=== PATIENT | female | born 2000 | race Caucasian/White ===

== ENCOUNTER 2020-08-06 23:30 | Inpatient (IN) ==
[2020-08-06 23:22] LABS: Basophils # 0.1 K/mcL (0.0-0.2); Basophils % 0.6 %; Eosinophils # 0.2 K/mcL (0.0-0.6); Eosinophils % 1.6 %; Hematocrit 41.5 % (35.3-44.9); Hemoglobin 14.1 g/dL (11.5-15.4); Immature Granulocytes % 1.1 % (0-4); Lymphocytes # 2.7 K/mcL (0.6-4.6); Lymphocytes % 18.7 %; Mean Corpuscular Hemoglobin 32.1 pg (28.0-33.3); Mean Corpuscular Volume 94.5 fL (83.0-100.0); Mean Platelet Volume 9.7 fL (9.4-12.4); Monocytes # 1.1 K/mcL (0.0-1.3); Monocytes % 7.4 %; Neutrophils # 10.1 K/mcL (1.6-8.9); Platelet Count 273 K/mcL (140-400); Red Blood Count 4.39 M/mcL (3.82-4.97); Segmented Neutrophils % 70.6 %; White Blood Count 14.4 K/mcL (4.3-11.1)
[~2020-08-06 23:30] MED LIST: *HR* FentaNYL (PF) 100 MCG/2 ML VIAL IVP PRN; Famotidine 20 MG/2 ML VIAL IVP PRN; Lidocaine 1% 20 ML MDV INFILT PRN; Metoclopramide 10 MG/2 ML VIAL IVP PRN; Naloxone 0.4 MG/ML INJ IVP PRN; Ondansetron 4 MG/2 ML VIAL IVP PRN; Oxytocin 20 units/ LR 1000 mL 20 UNIT/1,000 ML BAG IVC ONE; Ringers Solution, Lactated 1,000 ML IVC SCH
[2020-08-06 23:32] LABS: Amphetamine Screen,Urine Negative ng/mL (Cutoff=1000); Barbiturate Screen,Urine Negative ng/mL (Cutoff=200); Benzodiazepines Screen,Urine Negative ng/mL (Cutoff=200); Cannabinoid Screen,Urine Negative ng/mL (Cutoff = 50); Cocaine Screen,Urine Negative ng/mL (Cutoff= 300); Opiate Screen,Urine Negative ng/mL (Cutoff=300); Phencyclidine Screen,Urine Negative ng/mL (Cutoff=25)
[2020-08-06] MEDS ORDERED: *HR* FentaNYL (PF) 100 MCG/2 ML VIAL ONE (23:55)
[2020-08-06] MEDS ORDERED: Bupivacaine-MPF 0.25% 10 ML VIAL ONE (23:55)
[2020-08-06] MEDS ORDERED: Epidural Premix (fent/bupiv) 110 ML EP ONE (23:58)
[2020-08-07] MEDS ORDERED: EPHEDrine 50 MG/ML VIAL IVP PRN (00:23)
[2020-08-07] MEDS ORDERED: Epidural Premix (fent/bupiv) 110 ML EP SCH (00:30)
[2020-08-07] MEDS ORDERED: Oxytocin 20 units/ LR 1000 mL 20 UNIT/1,000 ML BAG IVC ONE (05:45)
[2020-08-07] MEDS ORDERED: Measles/Mumps/Rubella Vacc 0.5 ML VIAL SQ PRN (05:45)
[2020-08-07] MEDS ORDERED: Oxytocin 20 units/ LR 1000 mL 20 UNIT/1,000 ML BAG IVC SCH (05:45)
[2020-08-07] MEDS ORDERED: Acetaminophen 325 MG TABLET PO PRN (05:45)
[2020-08-07] MEDS ORDERED: Benzocaine/Menthol 56 GM AEROSOL SPRAY TP PRN (05:45)
[2020-08-07] MEDS ORDERED: Rho Immune Globulin 1,500 UNIT SYRINGE IM PRN (05:45)
[2020-08-07] MEDS: Prenatal Vit/FA 1 EACH TABLET PO SCH (08:42)
[2020-08-07] MEDS: *HR* Buprenorphine HCl 8 MG TAB.SUBL SL SCH (08:42)
[2020-08-07] MEDS: Ibuprofen 600 MG TABLET PO PRN (20:45)
[2020-08-08 07:45] LABS: Basophils # 0.1 K/mcL (0.0-0.2); Basophils % 0.6 %; Eosinophils # 0.5 K/mcL (0.0-0.6); Eosinophils % 3.3 %; Hematocrit 35.6 % (35.3-44.9); Immature Granulocytes % 1.1 % (0-4); Lymphocytes # 4.2 K/mcL (0.6-4.6); Lymphocytes % 29.6 %; Mean Corpuscular HGB Conc 33.1 g/dL (31.6-35.5); Mean Corpuscular Hemoglobin 31.6 pg (28.0-33.3); Mean Corpuscular Volume 95.4 fL (83.0-100.0); Mean Platelet Volume 9.7 fL (9.4-12.4); Monocytes # 1.3 K/mcL (0.0-1.3); Monocytes % 8.9 %; Platelet Count 205 K/mcL (140-400); Red Blood Count 3.73 M/mcL (3.82-4.97); Red Cell Distribution Width 13.1 % (11.5-14.5); Segmented Neutrophils % 56.5 %; White Blood Count 14.1 K/mcL (4.3-11.1)
[2020-08-08 07:50] LABS: Hemoglobin 11.8 g/dL (11.5-15.4)
[2020-08-08 08:00] VITALS: BP 126/84
[2020-08-08] MEDS: Ibuprofen 600 MG TABLET PO PRN (08:40)
[2020-08-08] MEDS: Prenatal Vit/FA 1 EACH TABLET PO SCH (08:40)
[2020-08-08] MEDS: *HR* Buprenorphine HCl 8 MG TAB.SUBL SL SCH (08:40)
== END 2020-08-08 11:41 | disposition home or self-care (01) | DRG 560 ==
LOC: 1NENULAB → 1NENUOBS 08-07 05:26
PROVIDERS: ADMIT Obstetrics & Gynecology; ATTEND Obstetrics & Gynecology